=== PATIENT | male | born 1970 | race Two or more races ===

== ENCOUNTER 2016-08-24 22:48 | Emergency (ER) | payer SELFPAY ==
[2016-08-24] MEDS ORDERED: NO HOME MEDICATION XX (22:58)
[2016-08-25] MEDS ORDERED: HYDROCHLOROTH12.5 M2 PO (00:20)
== END 2016-08-25 00:25 ==
LOC: EDMED 22:48
DX: S46.811A Strain of other muscles, fascia and tendons at shoulder and upper arm level, right arm, initial encounter (principal); I10 Essential (primary) hypertension; R20.2 Paresthesia of skin; Z87.891 Personal history of nicotine dependence; X58.XXXA Exposure to other specified factors, initial encounter